=== PATIENT | male | born 1970 | race Two or more races ===

== ENCOUNTER 2017-11-22 17:15 | Emergency (ER) | payer SELFPAY ==
[2017-11-22 17:24] VITALS: BP 128/86; PULSE 108; TEMP 98.4; BMI 31.1
[2017-11-22] MEDS ORDERED: predniSONE 20 MG TABLET (UD) PO ONE (17:40)
[2017-11-22] MEDS ORDERED: predniSONE 20 MG TABLET (UD) ONE (17:46)
--- NOTE | 2017-11-22 17:49 | PDOC ---
History of Present Illness - General Chief Complaint: Pain Stated Complaint: GOUT, ANKLE TO KNEE PAIN Time Seen by Provider: 11/22/17 17:18 - History of Present Illness Initial Comments: 11/22/17 18:19 "The patient is a 46 year old male with a PMHx significant for gout (7 years), who presents with bilateral lower extremity joint pain and swelling . The patient states that 2.5 weeks ago he began experiencing pain in his right knee and ankle. He states that the pain and swelling are very consistent with his usual gout flares. However, he states that the pain was so severe that he was unable to ambulate without crutches. He went to [facility] where he was given percocet. He states the percocet gave him temporary relief. The pain and swelling improved gradually. However, yesterday he began experiencing worsening pain in his R knee and ankle, as well as pain in his L ankle. He states that his current pain is also consistent with his gout flare- ups. 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 He states that he has been taking Motrin every 4-6 hours consistently for his joint pain with minimal relief. Pt denies any F/C. Denies any redness to his knees or ankles. Pt is still able to range both knees and ankles but with some discomfort. Past History - Past Medical History Allergies/Adverse Reactions: Allergies Allergy/AdvReac Type Severity Reaction Status Date / Time Penicillins Allergy Unknown Verified 11/22/17 17:19 Home Medications: Ambulatory Orders Ibuprofen 800 mg PO BID PRN 11/22/17 Prednisone [Prednisone 50 MG TABLETS] 50 mg PO DAILY #5 tablet 11/22/17 COPD: No Other medical history: GOUT, HEARING IMPAIRED - Suicide/Smoking/Psychosocial Hx Smoking History: Never smoked Hx Alcohol Use: No Drug/Substance Use Hx: No Review of Systems - Review of Systems Comments:: 11/22/17 18:22 "GENERAL/CONSTITUTIONAL: No fever or chills. No weakness. HEAD, EYES, EARS, NOSE AND THROAT: No change in vision. No ear pain or discharge. No sore throat. CARDIOVASCULAR: No chest pain or shortness of breath. RESPIRATORY: No cough, wheezing, or hemoptysis. GASTROINTESTINAL: No nausea, vomiting, diarrhea or constipation. GENITOURINARY: No dysuria, frequency, or change in urination. MUSCULOSKELETAL: + R knee and b/l ankle pain and swelling. No neck or back pain. SKIN: No rash NEUROLOGIC: No headache, vertigo, loss of consciousness, or change in strength/ sensation. ENDOCRINE: No increased thirst. No abnormal weight change. HEMATOLOGIC/LYMPHATIC: No anemia, easy bleeding, or history of blood clots. ALLERGIC/IMMUNOLOGIC: No hives or skin allergy. " *Physical Exam - Vital Signs Last Vital Signs Temp Pulse Resp BP Pulse Ox 98.4 F 108 H 16 128/86 100 11/22/17 17:18 11/22/17 17:18 11/22/17 17:18 11/22/17 17:18 11/22/17 17:18 - Physical Exam Comments: 11/22/17 18:23 "GENERAL: Awake, alert, and fully oriented, in no acute distress. HEAD: No signs of trauma EYES: PERRLA, EOMI, sclera anicteric, conjunctiva clear ENT: Auricles normal inspection, hearing grossly normal, nares patent, oropharynx clear without exudates. Moist mucosa NECK: Nontender, no stepoffs, Normal ROM, supple, no lymphadenopathy, JVD, or masses LUNGS: Breath sounds equal, clear to auscultation bilaterally. No wheezes, and no crackles HEART: Regular rate and rhythm, normal S1 and S2, no murmurs, rubs or gallops ABDOMEN: Soft, nontender, normoactive bowel sounds. No guarding, no rebound. No masses EXTREMITIES: + R knee effusion, no erythema, ROM somewhat limited 2/2 pain, + bilateral ankle effusion R>L, normal ROM NEUROLOGICAL: Cranial nerves II through XII intact. 5/5 strength and sensation in all extremities, Normal speech, normal gait, normal cerebellar function SKIN: Warm, Dry, normal turgor, no rashes or lesions noted. " Medical Decision Making - Medical Decision Making 11/22/17 17:45 46 M with R knee and bilateral ankle swelling and pain, consistent with pt's h/ o gout. Symptoms per patient are the same as previous gout flares. No F/C to suggest infectious process. - Prednisone - F/u ortho 11/22/17 18:53 Pt initially tachycardic to 108. After PO hydration, pt's HR now 90. Pt is well appearing, with normal vitals. Clinically stable for DC at this time. I discussed the physical exam findings, ancillary test results and final diagnoses with the patient. I answered all of the patient's questions. The patient was satisfied with the care received and felt comfortable with the discharge plan and treatment plan. The patient agrees to follow up with the primary care physician within 24-72 hours. *DC/Admit/Observation/Transfer Diagnosis at time of Disposition: Gout - Discharge Dispostion Disposition: HOME Condition at time of disposition: Good - Prescriptions Prescriptions: Prednisone [Prednisone 50 MG TABLETS] 50 mg PO DAILY #5 tablet - Referrals Referrals: Jin Schafer MD [Staff Physician] - - Patient Instructions Printed Discharge Instructions: DI for Gout Additional Instructions: Take the prednisone as prescribed to help treat your gout flare. You can also take ibuprofen 600mg every 6 hours as needed for pain. Follow up with an orthopedist or ophthalmic surgical assistant within 1 week for further evaluation. Call the number provided to make an appointment. If you experience worsening pain, swelling, fevers, chills, or any other concerning symptoms, return to the ER immediately. - Post Discharge Activity - Attestations Physician Attestion: 11/22/17 18:28 I, Dr. Pierce Art MD, attest that this document has been prepared under my direction and personally reviewed by me in its entirety. I further attest, that it accurately reflects all work, treatment, procedures and medical decision -making performed by me.
== END 2017-11-22 19:43 | disposition home or self-care (01) ==
LOC: FER 17:15
DX: M10.9 Gout, unspecified (principal)
CPT/HCPCS: 99281-25